=== PATIENT | male | born 1970 | race Caucasian/White ===

== ENCOUNTER 2022-05-12 06:41 | Emergency (ER) | payer OTHER, SELFPAY ==
[2022-05-12 06:42] VITALS: BP 164/112; PULSE 74; RESP 18; TEMP 36.4; O2SAT 96; BMI 29.0
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
[2022-05-12] MEDS: Ondansetron 4 MG/2 ML Vial IV (07:02)
[2022-05-12] MEDS: 0.9% Normal Saline 1,000 ML 999 ML IV (07:02)
[2022-05-12] MEDS: Morphine 4 MG/ML Syringe IV ×2 (07:02→08:19)
[2022-05-12] MEDS: Diphth,Pertuss(Acell),Tet Vac 0.5 ML Vial IM (07:02)
[2022-05-12 07:06] LABS: Absolute Lymphocyte Count 1.63 X10^3/uL (0.83-4.51); Absolute Neutrophil Count 2.8 X10^3/uL (2.0-7.7); Basophil# 0.03 X10^3/uL; Basophil% 0.6 % (0-1); Hematocrit 40.7 % (40-54); Hemoglobin 13.8 g/dL (13.0-16.5); Lymphocyte # 1.63 X10^3/ul (0.83-4.51); Lymphocyte % 32.1 % (19-41); Mean Corp Hgb Conc 33.9 g/dL (32-36); Mean Corpuscular Hgb 30.4 pg (27.0-32.0); Mean Corpuscular Volume 89.6 fL (80-94); Mean Platelet Vol. 9.3 fl (6.2-12.0); Monocyte# 0.45 X10^3/uL; Monocyte% 8.9 % (0-10); NRBC Flagged by Analyzer 0 % (0-5); Neutrophil # 2.82 X10^3/uL (2.7-7.7); Neutrophil % 55.6 % (47-70); Platelet Count 210 K/mm3 (150-450); RBC Distribution Width CV 12.2 % (11.6-14.6); Red Blood Count 4.54 M/mm3 (4.6-6.2); White Blood Count 5.1 K/mm3 (4.4-11.0)
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
[2022-05-12 07:15] LABS: International Normalized Ratio 0.9; Prothrombin Time (Protime)PT. 12.2 SECONDS (11.7-14.9)
[2022-05-12 07:19] LABS: Anion Gap 6 (5-15); BUN 26 mg/dL (7-18); Calcium,Total 8.7 mg/dL (8.5-10.1); Chloride 110 mmol/L (98-107); Creatinine, Serum 1.04 mg/dL (0.70-1.30); EST Glomerular Filtration Rate 80 mL/min (>60); Est Glom Filt Rate - Afr Amer 97 mL/min (>60); Estimated Creatinine Clearance 78.56 ml/min; Glucose 125 mg/dL (74-106); Potassium 4.3 mmol/L (3.5-5.1); Sodium Level 140 mmol/L (136-145)
[2022-05-12 07:49] VITALS: O2SAT 96
[2022-05-12 08:22] VITALS: BP 156/95; PULSE 82; RESP 16; TEMP 36; O2SAT 96
[2022-05-12 09:00] VITALS: BP 156/95; PULSE 82; RESP 16; TEMP 36; O2SAT 96
== END 2022-05-12 09:01 | disposition short-term general hospital (02) ==
PROVIDERS: Emergency Provider Emergency Medicine; PCP Family Medicine; Visit Provider Emergency Medicine
DX: S36.039A Unspecified laceration of spleen, initial encounter (principal); S20.20XA Contusion of thorax, unspecified, initial encounter; S39.91XA Unspecified injury of abdomen, initial encounter; V43.52XA Car driver injured in collision with other type car in traffic accident, initial encounter
CPT/HCPCS: 70450; 71260; 72125; 74177; 80048; 85025; 85610; 85730; 90715; 96361; 96374; 96375; 96376; 99285; J7030; Q9967; A4216; J2405

== ENCOUNTER → 2024-06-09 | Outpatient (CLI) | payer OTHER, SELFPAY ==
[2024-06-09 15:06] LABS: Absolute Lymphocyte Count 1.08 X10^3/uL (0.83-4.51); Absolute Neutrophil Count 3.5 X10^3/uL (2.0-7.7); Basophil# 0.01 X10^3/uL; Basophil% 0.2 % (0-1); Eosinophil# 0.28 X10^3/uL; Eosinophils% 5.3 % (0-5); Hematocrit 42.6 % (40-54); Hemoglobin 14.3 g/dL (13.0-16.5); Lymphocyte # 1.08 X10^3/ul (0.83-4.51); Lymphocyte % 20.3 % (19-41); Mean Corp Hgb Conc 33.6 g/dL (32-36); Mean Corpuscular Hgb 30.5 pg (27.0-32.0); Mean Corpuscular Volume 90.8 fL (80-94); Monocyte# 0.46 X10^3/uL; Monocyte% 8.6 % (0-10); NRBC Flagged by Analyzer 0 % (0-5); Neutrophil # 3.49 X10^3/uL (2.7-7.7); Neutrophil % 65.6 % (47-70); Platelet Count 224 K/mm3 (150-450); RBC Distribution Width CV 12.3 % (11.6-14.6); Red Blood Count 4.69 M/mm3 (4.6-6.2); White Blood Count 5.3 K/mm3 (4.4-11.0)
[2024-06-09 15:29] LABS: ALB/GLOB Ratio 1.2 RATIO (0.9-2.4); AST(SGOT) 17 U/L (15-37); Alanine Aminotransfer ALT/SGPT 31 U/L (16-61); Albumin, Serum 3.8 g/dL (3.2-5.0); Alkaline Phosphatase 55 U/L (45-117); Anion Gap 6 (5-15); BUN 21 mg/dL (7-18); BUN/Creat Ratio 22.2 RATIO (10-20); Calcium,Total 9.2 mg/dL (8.5-10.1); Chloride 108 mmol/L (98-107); Creatinine, Serum 0.95 mg/dL (0.70-1.30); EST Glomerular Filtration Rate 88 mL/min (>60); Est Glom Filt Rate - Afr Amer 107 mL/min (>60); Globulin 3.3 g/dL (2.2-4.2); Glucose 96 mg/dL (74-106); PSA,Total - Annual Screen 0.31 ng/mL (0.00-4.00); Protein, Total 7.1 g/dL (6.4-8.2); Sodium Level 140 mmol/L (136-145)
[2024-06-09 15:44] LABS: Syphilis Antibodies Non-reactive
[2024-06-16 06:10] LABS: Immunoglobulin E 20 IU/mL (6-495); Lyme Scn Total Ab w/Rflx Negative (Negative)
== END | disposition home or self-care (01) ==
LOC: MTLAB 12:33
PROVIDERS: PCP Family Medicine; Referring Provider Family Medicine; Visit Provider Family Medicine
DX: Z12.5 Encounter for screening for malignant neoplasm of prostate (principal); L30.9 Dermatitis, unspecified
CPT/HCPCS: 36415; 80053; 82785; 84153; 85025; 86618; 86780; G0103

== ENCOUNTER → 2024-08-28 | Outpatient (CLI) | payer OTHER, SELFPAY ==
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
--- NOTE | 2024-08-28 12:29 | MRI_ITS ---
EXAM: MR RIGHT LOWER EXTREMITY WITHOUT INTRAVENOUS CONTRAST, KNEE CLINICAL INDICATION: pain TECHNIQUE: Multiplanar and multisequence MR images of the right knee without intravenous contrast. COMPARISON: July 21, 2024 FINDINGS: BONES/JOINTS: At least high-grade fissure at the medial patellar facet without subchondral marrow signal alteration. EXTENSOR MECHANISM: Unremarkable. MEDIAL MENISCUS: Longitudinal horizontal oblique tear of the posterior horn of the medial meniscus with tear contacting the inferior meniscal surface. LATERAL MENISCUS: Unremarkable. MEDIAL CAPSULE/SUPPORTING STRUCTURES: Unremarkable. Intact. LATERAL CAPSULE/SUPPORTING STRUCTURES: Unremarkable. Lateral collateral ligamentous complex, inclusive of the popliteal tendon, are intact. ANTERIOR CRUCIATE LIGAMENT: Unremarkable. Intact. POSTERIOR CRUCIATE LIGAMENT: Unremarkable. Intact. MUSCLES: Unremarkable. CARTILAGE: Unremarkable. Intact. FLUID: Small to moderate suprapatellar joint effusion. 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 OTHER SOFT TISSUES: See above. MRI/Lower Ext Joint Only (Routine) IMPRESSION: 1. Longitudinal horizontal oblique tear of the posterior horn of the medial meniscus with tear contacting the inferior meniscal surface. 2. Small to moderate suprapatellar joint effusion; consider long Chatman''s cyst with inferior leakage suggested. 3. At least high-grade fissure at the medial patellar facet without subchondral marrow signal alteration. Electronically Signed: Jon Johnson MD at 21:17 EDT ,
== END | disposition home or self-care (01) ==
LOC: MRI 12:05
PROVIDERS: PCP Family Medicine; Referring Provider Family Medicine; Visit Provider Family Medicine
DX: S46.119A Strain of muscle, fascia and tendon of long head of biceps, unspecified arm, initial encounter (principal); X58.XXXA Exposure to other specified factors, initial encounter
CPT/HCPCS: 73218; 73721

== ENCOUNTER → 2025-05-28 | Outpatient (CLI) | payer OTHER, SELFPAY ==
--- NOTE | 2025-05-28 14:13 | RAD_ITS ---
PROCEDURE: SHOULDER MIN 2 VIEWS 05/28/2025 REASON FOR EXAM: INJURY TECHNIQUE: SHOULDER MIN 2 VIEWS COMPARISON: None FINDINGS: Bones: Unremarkable Joints: Normal alignment. Joint spaces preserved. No arthropathic features. Soft tissues: Unremarkable Other: RAD/Shoulder min 2 Views IMPRESSION: NO ACUTE FRACTURE OR DISLOCATION. Reading Location: [id number]
== END | disposition home or self-care (01) ==
LOC: MTRAD 14:13
PROVIDERS: PCP Family Medicine; Referring Provider Physician Assistant; Visit Provider Physician Assistant
DX: S49.92XA Unspecified injury of left shoulder and upper arm, initial encounter (principal); X58.XXXA Exposure to other specified factors, initial encounter
CPT/HCPCS: 73030

== ENCOUNTER → 2025-06-21 | Outpatient (CLI) | payer OTHER, SELFPAY ==
--- NOTE | 2025-06-21 10:50 | MRI_ITS ---
PROCEDURE: UPPER EXT JOINT ONLY(ROUTINE) 06/21/2025 REASON FOR EXAM: PAIN W/ LROM TECHNIQUE: UPPER EXT JOINT ONLY(ROUTINE) Multiplanar and multisequence images were obtained without IV contrast administration. COMPARISON: COMPARISON: May 28, 2025 x-ray FINDINGS: Bone Marrow: There is no bony contusion or occult fracture. Rotator cuff: There is no muscular atrophy. There is severe distal supraspinatus and infraspinatus tendinopathy without full-thickness tear or retraction. There is moderate distal subscapularis tendinopathy without full-thickness tear or retraction. The teres minor appears intact. AC joint: There is moderate AC joint hypertrophy with a small effusion. There is a type 2 acromion. Subacromial subdeltoid bursa: There is fluid in the subacromial subdeltoid bursa, with bursitis. Labrum: There is no focal labral tear. Effusion: There is a large joint effusion. There is a 1.1 by 0.4 by 0.8 cm ganglion at the lateral aspect of the inferior glenohumeral ligament. Biceps tendon: There is severe tendinopathy of the intra-articular and extra- articular portion of the biceps tendon. MRI/Upper Ext Joint Only(Routine) IMPRESSION: There is severe distal supraspinatus and infraspinatus tendinopathy without ful l-thickness tear or retraction. There is moderate distal subscapularis tendinopathy without full-thickness tear or retraction. There is moderate AC joint hypertrophy with a small effusion. There is fluid in the subacromial subdeltoid bursa, with bursitis. There is a large joint effusion. There is a 1.1 by 0.4 by 0.8 cm ganglion at the lateral aspect of the inferior glenohumeral ligament. There is severe tendinopathy of the intra-articular and extra-articular portion of the biceps tendon. Reading Location: [facility]
== END | disposition home or self-care (01) ==
LOC: OPMRI 10:33
PROVIDERS: PCP Family Medicine; Referring Provider Physician Assistant; Visit Provider Physician Assistant
DX: S46.912A Strain of unspecified muscle, fascia and tendon at shoulder and upper arm level, left arm, initial encounter (principal); X58.XXXA Exposure to other specified factors, initial encounter
CPT/HCPCS: 73221

== ENCOUNTER 2025-08-14 14:30 | Outpatient (RCR) | payer OTHER, SELFPAY ==
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
--- NOTE | 2025-08-14 14:46 | HP.PTREVAL_ITS ---
Re-Evaluation Intro: BERTHA Sinclair, It has been my pleasure to treat IRVING POTTER III over the last 9 visits for L shoulder strain. Please see the progress note below for an update on the physical therapy plan of care! Subjective Subjective: I am getting better, but slowly Objective Objective/Function: L shoulder pain ranges from 0-6/10 L shoulder MMT: flex= 18, abd= 27, ER= 17, IR= 18 #F L shoulder ROM: flex= 157, abd= 170 degrees Pt is showing excellent progress at this time Plan Plan Plan: Follow up to re-assess in 4 weeks. Pt to perform I HEP until then. Balance/Gait/Functional tests Balance/Special Test Scores Quick DASH Score: 40.9075 Goals Goals Goal 1:: Decrease L shoulder pain x 50% to aid with sleep Goal Time Frame: 4-6 Weeks Goal 2:: Increase L shoulder flex and abd ROM x 20-30 degrees to aid with overhead lifting Goal Time Frame: 4-6 Weeks Goal 3:: increase L shoulder strength to be 90% equal to R shoulder strength to aid with RTW Goal Time Frame: 4-6 Weeks Goal 4:: I with HEP Goal Time Frame: 4-6 Weeks Goal Progress: Goal Met Anticipated Interventions Anticipated Interventions Patient/Client Instruction: Educate patient on: Condition and Plan of Care For the Purpose of:: To improve self management Therapeutic Exercise to Include: Strength training, Endurance training, Flexibilty training, Active ROM and Scapular Strength/Stabilization For the Purpose of:: To decrease pain, To increase ROM and To improve muscle per formance and motor function Cryotherapy (ice pack, ice massage): Yes For the Purpose of:: To decrease pain Re-Evaluation Ending Re-evaluation ending: Please do not hesitate to contact me at [phone] by phone or if you have questions or concerns regarding this new plan of care! Sincerely, Derrek Hazel, PT, ATC
--- NOTE | 2025-09-12 13:57 | HP.PT.NRP ---
Patient Information Patient Information: IRVING POTTER III was seen in my office for initial evaluation on 06/19/25. The following Plan of Care was established for this patient: POC Established Initial Frequency: 2-3x /Week Initial Duration: 4 Weeks Anticipated Interventions Patient/Client Instruction: Educate patient on: Condition and Plan of Care For the Purpose of:: To improve self management Therapeutic Exercise to Include: Strength training, Endurance training, Flexibilty training, Active ROM and Scapular Strength/Stabilization For the Purpose of:: To decrease pain, To increase ROM and To improve muscle performance and motor function Cryotherapy (ice pack, ice massage): Yes For the Purpose of:: To decrease pain Last Seen Last Seen: This patient was last seen in our office . Pertinent comments regarding their Physical therapy will appear below: Pt returned to report that he is painfree and does not need further Rx. Pt is discharged at this time. At this point I will be discontinuing this patient from physical therapy. I would be happy to see this patient again in the future if found appropriate by the physician. Thank you! Derrek Hazel, PT, ATC Balance/Gait/Functional tests Balance/Special Test Scores Quick DASH Score: 40.9076
== END 2025-08-14 19:00 | disposition home or self-care (01) ==
LOC: PT 14:30
PROVIDERS: PCP Family Medicine; Referring Provider Physician Assistant; Visit Provider Physician Assistant
DX: S46.912A Strain of unspecified muscle, fascia and tendon at shoulder and upper arm level, left arm, initial encounter (principal)
CPT/HCPCS: 97110; 97140; 97161; 97530